=== PATIENT | male | born 1945 | race American Indian/Alaskan Native ===

== ENCOUNTER 2016-07-30 12:40 | Outpatient (CLI) | payer MEDICARE ==
--- NOTE | 2016-07-30 14:04 | XRay Report ---
CHEST 2 VIEWS INDICATION: Diabetes. COMPARISON: None similar at this institution. FINDINGS: PA and lateral chest radiographs demonstrate normal cardiomediastinal silhouette. Clear lungs. Possible osteopenia. CONCLUSION: No acute disease in the chest. Thank you for the opportunity to participate in this patient's care.
== END 2016-07-30 12:41 | disposition home or self-care (01) ==
LOC: CARD 12:40
PROVIDERS: ATTEND Internal Medicine
DX: Z01.818 Encounter for other preprocedural examination (principal); E11.9 Type 2 diabetes mellitus without complications
CPT/HCPCS: 71020; 93005; 93010